=== PATIENT | male | born 1995 | race Caucasian/White ===

== ENCOUNTER 2022-07-19 02:58 | Inpatient (IN) | payer OTHER, SELFPAY ==
--- NOTE | 2022-07-19 03:01 | PC.NURSE ---
PT SIGNED A 3 DAY NOTICE ON 07/19/22. UP ON Sunday07/24/22
--- OUTSIDE RECORDS SUMMARY | 2022-07-19 03:02 | XMS_ITS ---
:1995 Author Care Team Providers Name Role Phone José MiguelDedra Grn Primary Care Provider Unavailable Allergies None recorded. Medications None recorded. Problems None recorded. Procedures None recorded. Results Lab Results Date Name Specimen Result Interpretation Description Value Range Status Address ? 04/19/2020 Rapid SARS CoV 2 ? Rapid SARS CoV negative ? ? In-Office Order: Ag, QL IA, 2 Ag, QL IA, Internal Use Respiratory Respiratory Only DO Not Specimen Specimen Attach Compendium DO Not Attach Compendium , Do Not Delete /merge Past Encounters None recorded. Social History None recorded. Vaccine List None recorded. Plan of Care Reminders Provider Appointments None recorded. ? ? Lab None recorded. ? ? Referral None recorded. ? ? Procedures None recorded. ? ? Surgeries None recorded. ? ? Imaging None recorded. ? ? Vitals None recorded.
[2022-07-19 03:04] VITALS: BMI 25.1
--- NOTE | 2022-07-19 03:05 | PC.ADMIT ---
PT IS A 26 YEAR OLD, CISGENDER MALE WHO WAS TRANSFERRED FROM [facility] TO [place] AT 0235 DUE TO NON-COMPLIANCE WITH MEDICATIONS AND MAKING VAGUE SI STATEMENTS WITH NO PLAN. PT IS UNKNOWN TO [place]. PT IS A CONDITIONAL VOLUNTARY. HE SIGNED A 3 DAY NOTICE ON 07/19/22 UPON ADMISSION WHICH IS UP ON Sunday07/24/22. PT HAS NO KNOWN ALLERGIES. PSYCH GROUP. 15 MINUTE SAFETY CHECKS. VITAL SIGNS STABLE. PTS MOTHER REPORTS HE DETERIORATES QUICKLY WHEN OFF MEDS. PT HAS HX OF PERIODS OF PSYCHOSIS. PT IS ALERT AND ORIENTED X4. HIS SPEECH IS LINEAR, EYE CONTACT GOOD, JUDGEMENT, INSIGHT IMPAIRED. COPING IMPAIRED. PT ENDORSES NO CURRENT SI OR HI. NO AH OR VH. MILD DEPRESSION AND ANXIETY DUE TO THE THOUGHT OF NOT BEING HOME WITH FAMILY FOR [place]. PT WAS POSITIVE FOR THC. ETOH 4. INDEPENDENT ADLS. NO MEDICAL COMPLAINTS. COVID NEGATIVE. PT WAS COOPERATIVE DURING ADMISSION BUT LEGALS/SAFETY TOOL NEED TO BE COMPLETED PATIENT WANTED TO GO TO BED. PT HAS BEEN EATING WELL BUT HAS SOME DIFFICULTY SLEEPING. PT HAS BEEN EVALUATED BY OTHER HOSPITALS 5 TIMES IN THE PAST YEAR FOR SIMILAR SITUATIONS. PT REPORTS THAT HE DRINKS APPROXIMATELY ONCE PER MONTH AND DOES NOT APPEAR TO HAVE SIGNS OF WITHDRAWAL. PT HAS NO CURRENT PROVIDERS. PT HAS STRONG FAMILY SUPPORT. PT HAS RECENTLY BROKEN UP WITH HIS GIRL FRIEND AND REPORTS THAT THE HOLIDAYS ARE MAKING IT HARD TO DEAL WITH THIS.
[2022-07-19 08:49] VITALS: BP 117/67; PULSE 71; RESP 18; TEMP 36.1; O2SAT 100
[2022-07-19] MEDS: hydrOXYzine HCL 25 MG TABLET PO ×2 (08:55→17:51)
--- NOTE | 2022-07-19 13:50 | HO.PM.IMCN ---
History of Present Illness Data of Consult Service Date: 07/19/22 Primary Care Provider: Unknown Physician HPI Reason for consult: routine medical H&P 26 yo M admitted to . Medical consult requested for routine medical H&P. Pt seen and examined in their room. Denies any complaints. PMH Denies PSH Denies FH Denies SH Reports marijuana use, denies tobacco, drinks alcohol once a month Review of Systems Review of Systems: Negative except HPI/interval history. PMFSH Social History Household Members: Family Housing: House Do you presently have visiting nurse or other home services: No Patient Tobacco Use Status: Current someday Tobacco user Smoked in Last 30 Days: Yes e-Cigarette/Vaping Use: Currently Using Patient Interested in Nicotine Replacement: No Patient Given Instructions on How to Stop Smoking: No (NOT INTERESTED) Second Hand Smoke Exposure: No Use of substances other than those prescribed or required for medical reasons: Yes Substance Use Type: Marijuana Substance Use Frequency: Daily Currently Displaying Signs/Symptoms of Drug Intoxication Withdrawal: No Any prior treatment program specific to substance use: No Have you been hit, kicked, punched, or otherwise hurt by someone within the past year? If so, by whom?: No Do you feel safe in your current relationship?: No Current Relationship Is there a partner from a previous relationship who is making you feel unsafe now?: No Are you made to feel afraid or neglected: No Advance Directives: No Advance Directives Information Provided: No Do you have thoughts of harming others: None Do you have a plan to hurt others: No Plan Recently lost weight without trying: No Eating poorly because of decreased appetite: No Nutrition Risks: No Nutritional Risk Poor oral hygiene: No service: No Sexual orientation: Straight/Heterosexual Meds Allergies Allergy/AdvReac Type Severity Reaction Status Date / Time No Known Allergies Allergy Verified 07/19/22 02:36 Active Medications: Current Medications Acetaminophen (Acetaminophen 325 Mg Tablet) 650 mg PO Q6H PRN PRN Reason: Headache/Pain Mild Scale (1-3) Al Hydroxide/Mg Hydroxide (Magnesium Hydrox/Alum Hydrox 30 Ml Oral.Susp) 30 ml PO Q6H PRN PRN Reason: Heartburn/Nausea Hydroxyzine HCl (Hydroxyzine Hcl 25 Mg Tablet) 25 mg PO Q6H PRN PRN Reason: Anxiety Last Admin: 07/19/22 08:55 Dose: 25 mg Magnesium Hydroxide (Milk Of Magnesia 30 Ml Oral.Susp) 30 ml PO DAILY PRN PRN Reason: Constipation Nicotine Polacrilex (Nicotine Polacrilex 2 Mg Gum) 4 mg BUCCAL Q2H PRN PRN Reason: Nicotine Cravings Trazodone HCl (Trazodone Hcl 50 Mg Tablet) 50 mg PO BEDTIME PRN PRN Reason: Insomnia Physical Exam Vital Signs and Narrative: Vital Signs: Last Vital Signs Temp 97.0 F 07/19/22 08:49 Pulse 71 07/19/22 08:49 Resp 18 07/19/22 08:49 BP 117/67 07/19/22 08:49 Pulse Ox 100 07/19/22 08:49 O2 Del Method 07/19/22 08:49 BMI result Body Mass Index 25.1 Const: Other: General - no acute distress, appears comfortable Cardiovascular - regular rate and rhythm, S1-S2 Lungs - normal respiratory effort, clear to auscultation bilaterally, no wheezing Abdomen - soft, nontender, no rebound or guarding Extremities - no edema bilaterally Neuro - awake and alert, no focal deficits; cn 2-12 intact b/l Assessment and Plan (1) Routine medical exam: Status: Acute Plan 26 yo M admitted to . Medical consult requested for routine medical H&P Pt denies chronic medical conditions and appears to be medically stable at this time Will sign off. Please re-consult if any medical issues arise. Thank you. Time Spent With Patient Time: Total time managing care of this patient today ____ minutes.
--- NOTE | 2022-07-19 16:56 | HO.PSYADMNOT ---
HPI Date of Service: 07/19/22 Chief Complaint: SI Sources of Information: patient interviewed, chart reviewed and crisis/core team assessment reviewed Additional Sources of Information: Mother, Karmen Gunter [phone]- reports pt has issues with medicine compliance. As a result he was placed on Invega Sustenna. Stopped treatment for a few months due to feeling improved and having insurance issues. Over the past months sx have increased. Mother is wanting pt to return home for the holiday, but has asked him to have his injection first. COLEMAN signed. Prescriber Sofi Copeland [phone]. Pt has an out pt appt with provider on 07/25/22. Message left to validate dosing of Invega Sustenna and to review case with provider. COLEMAN signed HPI Subjective Notes: Covarrubias Warning, Conditional Voluntary and 3 Day Healthcare Proxy: No Guardianship: No Medical Problems Affecting Mental Status: No Narrative: 26 yo male, hx of bipolar disorder, cycling, anxiety, cannibus use,SI admitted after 8 days in the [facility] ER for concern about SI and return of sx of illness due to noncompliance with medications. Pt reports he broke up with a girlfriend recently. To help with coping, he has been working and keeping a regular exercise schedule. He reports he has great interest in music, and recently posted a picture of Bradley Carlin of [place] on [employer]. Discussed that he draws inspiration from his music, but was not considering suicide He states a friend who has a history of suicide attempts himself interpreted this incorrectly thinking he was suicidal, however pt clearly denies this, and denies writing any caption which indicated this. Pt was shocked to have the police at his door the next a.m. as he was leaving for work. Pt told ER team he was concerned about losing his job and this is causing stress as he needs the job to get the apartment he is saving for so he may move from mother's home. Reports he has not seen his OP team as insurance lapsed, but reconnected with them and has an appt on 07/25/22 for pharmacology since insurance was reinstated. Pt would like to return home to his mothers. Mother is in agreement and states she asks that pt have his Sustenna injection. Pt believes he is not in need of medication, however, will accept the injection and would like to return home for [place]. Message left with providers to validate dosing. Pt reports no issues with sleep, no sx javier, no sx depression, hx of social anxiety. He denies SI, HI, perceptual alterations. Past Psychiatric History: Evals: #5 in 2021 for sx which have been similiar to current presentation IP: [facility] Medicine: 07/21/21, 08/18/21, 09/16/21, 11/2021 SA: 2014-attempted hanging Medical Evaluation Reviewed: Yes [facility] Medical History (Updated 07/19/22 @ 17:29 by Kelsea Mcclain, JOAO) Bipolar disorder Social anxiety disorder Family History: Bipolar disorder-mom Social History: Born in [place], raised in [place], only child, raised by mother. Works for [employer]-likes the job and hopes to continue Substance History: THC 1-2 times per month Alcohol on occasion Trauma History: Denies Diagnostics Vital Signs (24Hr): Vital Signs - 24 hr 07/19/22 08:49 Temperature 97.0 F Pulse Rate 71 Respiratory Rate 18 Blood Pressure 117/67 Pulse Oximetry 100 Oxygen Delivery Method Room Air BMI result Body Mass Index 25.1 [facility] RBC- 4.16 Hgb-12.8 Ethanol-4 Cannabinoids- positive EKG rate 66 QTc 404, sinus arrythmia COVID negative Meds/Allergies Allergies Allergies Allergy/AdvReac Type Severity Reaction Status Date / Time No Known Allergies Allergy Verified 07/19/22 02:36 Mental Status Exam Mental Status Exam Patient Appearance: Appropriate Patient Orientation: Person, Place, Time and Situation Level of Consciousness: Alert Patient Behavior: Appropriate, Talkative, Cooperative and Good Eye Contact Mood Description: Withdrawn and Appropriate Affect Description: Appropriate Patient Cognition Impaired: No Ability to Follow Directions: Good Speech Pattern: Spontaneous Speech Memory Description: Intact Hallucinations: None Delusions: Not Present Thought Process: Intact Thought Content: positive for Intact Abnormal Motor Activity Signs and Symptoms: Restlessness Judgement: Good Assessment & Plan Assessment & Plan (1) Bipolar disorder: Status: Acute Code(s): F31.9 - Bipolar disorder, unspecified (2) Social anxiety disorder: Status: Acute Code(s): F40.10 - Social phobia, unspecified Plan 26 yo male, hx of bipolar disorder, social anxiety, non compliance with meds. Pt lost insurance and decided he was well and stopped meds and treatment. Recent breakup with girlfriend and posting of a picture of Bradley Carlin on social media caused friends and family to have increased concern that pt was suicidal. Pt has spent several days in the [facility] ER without event. He was transferred [place] [facility] [place]. Pt signed a three day notice on admit, denies all sx. Mother was contacted and would like pt to discharge, however would like him to have his Invega Sustenna prior to discharge. Call to out pt providers for dosage verification-still pending. Pt has an appt to meet with provider on 07/25/22. Pt agrees to have Sustenna injection and would like to be with his family for [place]. Plan: Lipids, A1C Will provide Invega Sustenna when dosage is verified by OP team. Olanzapine, Klonopin prn to continue from ER dosing. Patient educated on: medication risk/benefits and therapeutic strategies Informed Consent: understands and further education needed Reason for continued inpatient stay Substantial Risk for: rapid decompensation Statement Statement: I have reviewed the history and physical and performed a pertinent examination on my patient. No changes have occurred unless specified. If the History and Physical was not performed prior to admission, the Hospitalist's service will be consulted for completing the admission physical. Time Spent With Patient Time: Total time managing care of this patient today __90__ minutes.
[2022-07-19 18:00] VITALS: BP 129/72; PULSE 65; RESP 18; TEMP 36.3; O2SAT 98
[2022-07-20 07:00] VITALS: BMI 23.5
[2022-07-20 08:50] VITALS: BP 131/73; PULSE 73; RESP 16; TEMP 36.2; O2SAT 97
[2022-07-20 09:06] LABS: Estimated Average Glucose 91 mg/dL; Hemoglobin A1c % 4.8 %
[2022-07-20] MEDS: hydrOXYzine HCL 25 MG TABLET PO (09:20)
[2022-07-20 09:21] LABS: Alanine Aminotransferase 13 U/L (0-40); Albumin Level 4.6 g/dL (3.5-5.0); Alkaline Phosphatase 43 U/L (39-117); Anion Gap 18 (12-20); Aspartate Amino Transferase 20 U/L (5-37); Bilirubin Direct 0.4 mg/dL (0.0-0.5); Bilirubin Total 1.6 mg/dL (0.0-1.0); Blood Urea Nitrogen 13 mg/dL (9-16); Calcium 9.5 mg/dL (8.4-10.2); Carbon Dioxide 23 mmol/L (22-29); Chloride 104 mmol/L (96-108); Cholesterol 198 mg/dL; Creatinine Clr Calc Pharmacy 118.3; Estimated Glomerular Filt Rate > 60; Glucose Fasting 73 mg/dL (60-99); HDL Cholesterol 69 mg/dL; LDL Cholesterol Calculated 117 mg/dl; Potassium 4.7 mmol/L (3.3-5.1); Sodium 140 mmol/L (135-145); Triglycerides 63 mg/dL
[2022-07-20 09:55] LABS: Thyroid Stimulating Hormone 0.99 uIU/mL (0.32-4.0)
[2022-07-20 10:16] LABS: Folate 10.8 ng/mL (> or = 4.0); Vitamin B12 733 pg/mL (200-900)
--- NOTE | 2022-07-20 18:19 | P.DS_ITS ---
DS: Providers Provider Date of Service: 07/20/22 Date of admission: 07/19/22 02:58 Date of discharge: 07/20/22 Primary care physician: Unknown Physician Admitting clinician: Kelsea Mcclain Attending physician on admission: Joe Walker Consults: 07/19/22 02:36 Consult to Hospitalist Routine Consulting Provider: Hospitalist Reason For Exam: OSH admission Attending physician on discharge: Joe Walker Discharging clinician: Kelsea Mcclain DS: Diagnosis Discharge Diagnosis (1) Bipolar disorder: Status: Acute (2) Social anxiety disorder: Status: Acute DS: Medications Discharge Medications Home Medications: Previous Rx's Medication Instructions Recorded clonazepam 0.125 mg disintegrating 0.25 mg PO BID PRN anxiety #14 tabs 07/20/22 tablet olanzapine 10 mg tablet 10 mg PO BID PRN psychosis,javier, 07/20/22 agitation #14 tabs olanzapine 10 mg tablet (Zyprexa) 10 mg PO BEDTIME #14 tabs 07/20/22 Mental Status Exam Mental Status Exam Patient Appearance: Appropriate Patient Orientation: Person, Place, Time and Situation Level of Consciousness: Alert Patient Behavior: Appropriate, Talkative, Cooperative and Good Eye Contact Mood Description: Withdrawn and Appropriate Affect Description: Appropriate Patient Cognition Impaired: No Ability to Follow Directions: Good Speech Pattern: Spontaneous Speech Memory Description: Intact Hallucinations: None Delusions: Not Present Thought Process: Intact Thought Content: positive for Intact Abnormal Motor Activity Signs and Symptoms: Restlessness Judgement: Good Data Data Completed and Pending Completed studies during hospitalization [Text1]: 07/20/22 07/20/22 07/20/22 08:24 08:24 08:24 Sodium 140 Potassium 4.7 Chloride 104 Carbon Dioxide 23 Anion Gap 18 BUN 13 Creatinine 0.90 Estim Creat Clear Calc 118.3 Estimated GFR > 60 Fasting Glucose 73 Estimat Average Glucose 91 Hemoglobin A1c % 4.8 Calcium 9.5 Total Bilirubin 1.6 H Direct Bilirubin 0.4 AST 20 ALT 13 Alkaline Phosphatase 43 Total Protein 7.0 Albumin 4.6 Triglycerides 63 Cholesterol 198 LDL Cholesterol, Calc 117 HDL Cholesterol 69 Vitamin B12 733 Folate 10.8 TSH 0.99 07/20/22 08:24 Sodium Potassium Chloride Carbon Dioxide Anion Gap BUN Creatinine Estim Creat Clear Calc Estimated GFR Fasting Glucose Estimat Average Glucose Cancelled Hemoglobin A1c % Cancelled Calcium Total Bilirubin Direct Bilirubin AST ALT Alkaline Phosphatase Total Protein Albumin Triglycerides Cholesterol LDL Cholesterol, Calc HDL Cholesterol Vitamin B12 Folate TSH DS: Summary Hospital Course Hospital Course: Admission to adult psychiatry after an eight day admission in the [facility] ER for exacerbation of Bipolar Disorder. Pt presented with a euthymic mood and affect upon admission with no symptoms of javier. Mother reports pt stopped medications several months ago and she asks that pt be discharged to her care and he be given an Invega Sustenna injection as this is the regime he followed earlier this year. Pt affirms a history of Invega Sustenna, however, he reports it was stopped as he was not in need of this agent. Calls to [facility], [facility] and [facility] where [facility] and family identify his care is consolidated have no record of pt being given Sustenna this past year. As a result, Olanzapine and Klonopin were ordered for pt upon discharge as these were the most recently prescribed agents. Pt will meet with his prescriber at [facility] on 07/25/22 and will continue this discussion with them on continuining Sustenna. Time spent discussing smoking cessation with patient: 3 to 10 minutes Status at Discharge Functional status at discharge: independent ambulation Overall status at discharge: patient is back to baseline Time Spent with Patient Time attestation: Total time managing care of this patient today ____ minutes. 40 Time spent: Greater than 30 minutes Discharge Plan Discharge Anticipated Discharge Date/Time: 07/20/22 14:04 Patient Disposition: Home, Self-Care Discharge Diagnosis: Bipolar Disorder Social Anxiety Disorder Referrals: MITZI, Shayla Copeland [Other] - 07/25/22 1:30 pm (Follow-up medication appointment with Shayla Copeland) Discharge Medications: New olanzapine 10 mg Tablet 10 mg PO BID PRN (Reason: psychosis,javier, agitation) Qty: 14 0RF clonazepam 0.125 mg Tablet,Disintegrating 0.25 mg PO BID PRN (Reason: anxiety) Qty: 14 0RF olanzapine [Zyprexa] 10 mg tablet 10 mg PO BEDTIME Qty: 14 0RF Discharge Orders: Discharge Order (Routine); Ordered 07/20/22 Ordered By: Kelsea Mcclain Diet: Advance to usual diet Activity on Discharge: As tolerated Stand Alone Forms: Patient Portal Discharge page, Community Support Care Plan Goals: Maintain mood and safe behaviors Take medications as directed Practice coping skills Follow up with out patient providers Health Concerns: Stable mood and behaviors Plan of Treatment: Follow up with out patient provider appointments Take medications as directed Prescriptions have been sent to [facility], [facility], [facility], and [facility] have no record of giving you Invega Sustenna in the past. [facility] will see you for a psychopharm appt on 07/25/22. Assessment: Pt interviewed prior to discharge and found to be fully oriented and without any SI or HI. Pt has insight and demonstrates good judgmet in terms of wanting to pursue treatment. Pt is not in imminent risk of harm to self or others and has a safety plan that includes presenting to the closest ER or calling 911 if feeling unsafe. Pt has been observed closely by nursing and unit staff throughout admission. Pt has not engaged in any behaviors that suggest dangerousness to self or others and has demonstrated appropriate behaviors and impulse control. Discharge Date/Time: 07/20/22 13:56
== END 2022-07-20 13:56 | disposition home or self-care (01) | DRG 753 ==
PROVIDERS: Psychiatry & Neurology Psychiatry; Admitting Provider Psychiatry & Neurology Psychiatry; Visit Provider Clinical Nurse Specialist Psychiatric/Mental Health, Adult
DX: F31.9 Bipolar disorder, unspecified (principal); R45.851 Suicidal ideations; F40.10 Social phobia, unspecified; F17.210 Nicotine dependence, cigarettes, uncomplicated; Z71.6 Tobacco abuse counseling; Z79.899 Other long term (current) drug therapy
CPT/HCPCS: 36415; 80053; 80061; 80076; 82607; 82746; 83036; 84443